=== PATIENT | female | born 1970 | race Two or more races ===

== ENCOUNTER 2019-11-20 01:48 | Emergency (ER) | payer MEDICAID, OTHER ==
[~2019-11-20] VITALS: Ht 152.4 cm; Wt 104.5 kg
[2019-11-20] MEDS ORDERED: morphine 4 MG/ML inj SYRINge IV ONE ×3 (02:05→04:20)
[2019-11-20] MEDS ORDERED: normal saline 1000ML IV soln IVB ONE (02:05)
[2019-11-20] MEDS ORDERED: ondansetron/PF 4mg/2ml inj IV ONE (02:05)
[2019-11-20 02:21] LABS: BASOPHILS % (AUTO) 0.2 % (0-1); EOSINOPHILS % (AUTO) 0.1 % (0-6); HEMATOCRIT 43.5 % (35.0-45.0); HEMOGLOBIN 14.5 g/dl (12.0-16.0); LYMPHOCYTES # (AUTO) 1.2 X10'3 (1.1-4.8); LYMPHOCYTES % (AUTO) 10.2 % (21-51); MEAN CORPUSCULAR HGB CONC 33.3 g/dL (33.0-36.5); MEAN PLATELET VOLUME 8.5 FL (7.4-10.4); MONOCYTES # (AUTO) 0.5 X10'3 (0-0.9); NEUTROPHILS % (AUTO) 85.5 % (42-75); PLATELET COUNT 351 X10'3 (140-440); RED BLOOD COUNT 4.83 X10'6 (4.20-5.60); RED CELL DISTRIBUTION WIDTH 13.4 % (11.5-14.5); WHITE BLOOD COUNT 11.7 X10'3 (4.5-11.0)
[2019-11-20] MEDS ORDERED: iohexol 300mg/ml 100ml inj. ONE (02:23)
--- NOTE | 2019-11-20 02:23 | NUR ---
PT IS CONCERNED ABOUT COST SHE IS UNINSURED. REGISTRATION NOTIFIED TO DISCUSS PAYMENT OPTIONS W/ PATIENT
[2019-11-20 02:26] LABS: CLARITY,URINE SLIGHTLY CLOUDY (Clear); COLOR,URINE YELLOW (Yellow); GLUCOSE, URINE NEGATIVE (Neg); KETONES,URINE NEGATIVE (Neg); LEUKOCYTE ESTERASE ,URINE TRACE (Neg); NITRITES, URINE NEGATIVE (Neg); OCCULT BLOOD,URINE NEGATIVE (Neg); PH,URINE 7.5 (4.8-8.0); PROTEIN,URINE NEGATIVE (Neg); UROBILINOGEN,URINE 0.2 E.U/dL (0.2-1.0)
[2019-11-20 02:29] LABS: ALANINE AMINOTRANSFERASE 173 U/L (12-78); ALBUMIN 3.4 G/DL (3.4-5.0); ALBUMIN/GLOBULIN RATIO 0.8 (1.1-1.5); ALKALINE PHOSPHATASE 121 IU/L (46-116); ANION GAP 8 (8-16); ASPARTATE AMINO TRANSFERASE 232 U/L (10-37); BILIRUBIN,TOTAL 0.7 MG/DL (0.1-1.0); BLOOD UREA NITROGEN 13 MG/DL (7-18); BUN/CREATININE RATIO 18.8 (6.6-38.0); CALCIUM 9.1 MG/DL (8.5-10.1); CHLORIDE 106 MMOL/L (99-107); CREATININE 0.69 MG/DL (0.40-0.90); GLUCOSE 156 MG/DL (70-104); LIPASE 354 U/L (73-393); MAGNESIUM 2.1 MG/DL (1.5-2.4); POTASSIUM 4.1 MMOL/L (3.5-5.1); SODIUM 139 MMOL/L (135-145); TOTAL CARBON DIOXIDE 25.5 MMOL/L (24-32); TOTAL PROTEIN 7.9 G/DL (6.4-8.2); eGFR 90 ML/MIN
[2019-11-20 02:30] LABS: UA COLLECTION TYPE CLN CATCH MIDSTREAM
[2019-11-20 02:31] LABS: BACTERIA,URINE FEW /HPF (Neg); RBC,URINE NONE SEEN /HPF (0-2); SQUAMOUS EPITHELIAL CELL,UR FEW /LPF (FEW); WBC,URINE 0-4 /HPF (0-4)
--- NOTE | 2019-11-20 03:19 | NUR ---
US CALLED AT [id number] IN
[2019-11-20] MEDS ORDERED: HYDR-4383 PO (04:22)
[2019-11-20] MEDS ORDERED: OMEP40CA13 PO (04:22)
[2019-11-20 04:39] VITALS: BP 126/58
[2019-11-20] MEDS ORDERED: ondansetron 4mg rapidly disintigrating tab PO ONE (04:55)
--- NOTE | 2019-11-22 08:53 | NUR ---
PT CALLED REGARDING LAB RESULTS FROM VISIT ON 11/20/2019, MSG LEFT TO CALL REGARDING LAB RESULTS
== END 2019-11-20 05:11 | disposition home or self-care (01) ==
LOC: ER 01:50
DX: R10.11 Right upper quadrant pain (principal); R10.84 Generalized abdominal pain; Z88.0 Allergy status to penicillin; Z90.710 Acquired absence of both cervix and uterus
CPT/HCPCS: 36415; 74177; 76700; 80053; 81001; 83690; 83735; 85025; 87077; 87088; 87186; 96374; 96375; 99285; J2270; J2405; J7030; Q9967

== ENCOUNTER 2020-08-23 14:14 | Emergency (ER) | payer MEDICAID, OTHER ==
[~2020-08-23] VITALS: Ht 152.4 cm; Wt 113.8 kg
[~2020-08-23 14:14] MED LIST: HYDR-4383 PO
[2020-08-23 16:29] LABS: URINE HCG NEGATIVE (NEG)
[2020-08-23 16:31] LABS: CLARITY,URINE SLIGHTLY CLOUDY (Clear); COLOR,URINE YELLOW (Yellow); GLUCOSE, URINE NEGATIVE (Neg); KETONES,URINE NEGATIVE (Neg); LEUKOCYTE ESTERASE ,URINE TRACE (Neg); NITRITES, URINE POSITIVE (Neg); OCCULT BLOOD,URINE NEGATIVE (Neg); PROTEIN,URINE NEGATIVE (Neg); UROBILINOGEN,URINE 0.2 E.U/dL (0.2-1.0)
[2020-08-23 16:43] LABS: UA COLLECTION TYPE OTHER
[2020-08-23 16:45] LABS: BACTERIA,URINE 4+ /HPF (Neg); RBC,URINE NONE SEEN /HPF (0-2); SQUAMOUS EPITHELIAL CELL,UR MODERATE /LPF (FEW)
--- NOTE | 2020-08-23 17:01 | NUR ---
PATIENT REFUSING TO HAVE LABS DRAWN UNTIL SHE FINDS OUT IF SHE QUALIFIES FOR EMERGENCY MEDICAL, REGISTRATION AT BEDSIDE
[2020-08-23 17:23] LABS: BASOPHILS # (AUTO) 0.1 X10'3 (0-0.2); BASOPHILS % (AUTO) 0.8 % (0-1); EOSINOPHILS # (AUTO) 0.1 X10'3 (0-0.9); EOSINOPHILS % (AUTO) 1.4 % (0-6); HEMATOCRIT 41.2 % (35.0-45.0); LYMPHOCYTES # (AUTO) 2.3 X10'3 (1.1-4.8); LYMPHOCYTES % (AUTO) 26.6 % (21-51); MEAN CORPUSCULAR HEMOGLOBIN 30.7 PG (27.0-31.0); MEAN CORPUSCULAR HGB CONC 33.9 g/dL (33.0-36.5); MEAN CORPUSCULAR VOLUME 90.7 FL (78-98); MEAN PLATELET VOLUME 8.2 FL (7.4-10.4); MONOCYTES # (AUTO) 0.6 X10'3 (0-0.9); MONOCYTES % (AUTO) 6.7 % (2-12); NEUTROPHILS # (AUTO) 5.5 X10'3 (1.8-7.7); NEUTROPHILS % (AUTO) 64.5 % (42-75); PLATELET COUNT 337 X10'3 (140-440); RED BLOOD COUNT 4.54 X10'6 (4.20-5.60); RED CELL DISTRIBUTION WIDTH 13.5 % (11.5-14.5); WHITE BLOOD COUNT 8.5 X10'3 (4.5-11.0)
[2020-08-23 17:29] LABS: ALANINE AMINOTRANSFERASE 18 U/L (12-78); ALBUMIN 3.1 G/DL (3.4-5.0); ALBUMIN/GLOBULIN RATIO 0.7 (1.1-1.5); ALKALINE PHOSPHATASE 68 IU/L (46-116); ANION GAP 7 (8-16); ASPARTATE AMINO TRANSFERASE 13 U/L (10-37); BILIRUBIN,TOTAL 0.2 MG/DL (0.1-1.0); BLOOD UREA NITROGEN 14 MG/DL (7-18); BUN/CREATININE RATIO 21.9 (6.6-38.0); CHLORIDE 106 MMOL/L (99-107); CREATININE 0.64 MG/DL (0.40-0.90); GLUCOSE 109 MG/DL (70-104); POTASSIUM 3.8 MMOL/L (3.5-5.1); SODIUM 142 MMOL/L (135-145); TOTAL CARBON DIOXIDE 29.2 MMOL/L (24-32); TOTAL PROTEIN 7.3 G/DL (6.4-8.2); eGFR > 90 ML/MIN
[2020-08-23] MEDS ORDERED: SULF1TAB49 PO (17:57)
[2020-08-23 18:35] VITALS: BP 124/81
== END 2020-08-23 18:30 | disposition home or self-care (01) ==
LOC: ER 14:15
DX: R42 Dizziness and giddiness (principal); N39.0 Urinary tract infection, site not specified; H53.8 Other visual disturbances; Z90.710 Acquired absence of both cervix and uterus; Z88.5 Allergy status to narcotic agent; Z88.0 Allergy status to penicillin; Z79.899 Other long term (current) drug therapy
CPT/HCPCS: 36415; 80053; 81001; 81025; 85025; 87077; 87088; 87186; 93005; 99285

== ENCOUNTER 2020-09-14 17:29 | Emergency (ER) | payer MEDICAID ==
[~2020-09-14] VITALS: Ht 152.4 cm; Wt 111.5 kg
[2020-09-14 17:33] VITALS: BP 149/89
[2020-09-14] MEDS ORDERED: ketorolac tromethamine 15mg/ml inj. IM ONE (18:45)
[2020-09-14] MEDS ORDERED: LIDOcaine 5% patch TP STA (18:45)
== END 2020-09-14 19:07 | disposition home or self-care (01) ==
LOC: ER 17:29
DX: M54.2 Cervicalgia (principal); M79.674 Pain in right toe(s); R42 Dizziness and giddiness; R51.9 Headache, unspecified; R11.0 Nausea; Z90.710 Acquired absence of both cervix and uterus; Z88.5 Allergy status to narcotic agent; Z88.0 Allergy status to penicillin; Z79.899 Other long term (current) drug therapy
CPT/HCPCS: 96372; 99283; J1885